=== PATIENT | female | born 1995 | race Two or more races ===

== ENCOUNTER 2021-11-28 15:33 | Outpatient (CLI) | payer MEDICAID ==
[2021-11-28 16:24] LABS: THYROID STIMULATING HORMONE 1.84 uIU/mL (0.34-5.60)
[2021-11-28 16:27] LABS: FREE T4 (FREE THYROXINE) 1.06 ng/dL (0.58-1.64)
== END 2021-11-28 15:34 | disposition home or self-care (01) ==
LOC: LAB 15:33
PROVIDERS: ATTEND Internal Medicine Endocrinology, Diabetes & Metabolism
DX: E06.9 Thyroiditis, unspecified (principal)
CPT/HCPCS: 36415; 84439; 84443